=== PATIENT | female | born 1970 | race Caucasian/White ===

== ENCOUNTER 2016-11-26 22:12 | Emergency (ER) | payer SELFPAY | END 2016-11-26 22:14 | disposition home or self-care (01) | LOC: ER 22:12 | DX: R51 Headache (principal); F17.200 Nicotine dependence, unspecified, uncomplicated; F32.9 Major depressive disorder, single episode, unspecified; I10 Essential (primary) hypertension; Z88.0 Allergy status to penicillin | CPT/HCPCS: 96372; 99283; J1200; J1885; J2765 ==